=== PATIENT | male | born 1980 | race Caucasian/White ===

== ENCOUNTER 2019-11-19 08:12 | Emergency (ER) | payer OTHER ==
[~2019-11-19] VITALS: Ht 175.3 cm; Wt 86.2 kg
[~2019-11-19 08:12] MED LIST: ALBU90OI INH; Bactrim Ds Tab1 EACH PO; CEPH500 PO; CETI5; CETI5 PO; CYCL10 PO; EPIN.3I; EPIN.3I INJ; EPIN.3I UD; Norco 5-325 Ta1 EACH PO; OXYACE5T PO; SULTRIDS PO; [UNRECOGNIZED DRUG - OTHER]; [UNRECOGNIZED DRUG - OTHER] INH
[2019-11-19] MEDS ORDERED: [UNRECOGNIZED DRUG - OTHER] PO (10:14)
[2019-11-19] MEDS ORDERED: METPRE4DP PO (10:14)
[2019-11-19] MEDS ORDERED: Zithromax250 MG PO (10:14)
[2019-11-19 10:33] LABS: Influenza A Negative (NEGATIVE); Influenza B Negative (NEGATIVE)
== END 2019-11-19 10:44 | disposition home or self-care (01) ==
LOC: ER 08:12
PROVIDERS: Physician Assistant
DX: J44.1 Chronic obstructive pulmonary disease with (acute) exacerbation (principal); Z87.891 Personal history of nicotine dependence
CPT/HCPCS: 71046; 87804; 99283-25

== ENCOUNTER 2020-06-04 19:55 | Emergency (ER) | payer OTHER ==
[~2020-06-04] VITALS: Ht 172.7 cm; Wt 83.9 kg
[~2020-06-04 19:55] MED LIST changes: +METPRE4DP PO; +Zithromax250 MG PO; +[UNRECOGNIZED DRUG - OTHER] PO
[2020-06-04] MEDS ORDERED: Prednisone20 MG PO (21:21)
[2020-06-04] MEDS ORDERED: Amoxicillin875 MG PO (21:21)
== END 2020-06-04 21:28 | disposition home or self-care (01) ==
LOC: ER 19:55
DX: R06.2 Wheezing (principal); L53.9 Erythematous condition, unspecified; T36.1X5A Adverse effect of cephalosporins and other beta-lactam antibiotics, initial encounter; Z87.891 Personal history of nicotine dependence
CPT/HCPCS: 36415; 94640; 96374; 96375; 99282-25; J1200; J2930

== ENCOUNTER 2020-12-13 08:23 | Day surgery (SDC) | payer OTHER ==
[~2020-12-13] VITALS: Ht 175.3 cm; Wt 85.2 kg
[~2020-12-13 08:23] MED LIST changes: +Amoxicillin875 MG PO; +Prednisone20 MG PO
--- NOTE | 2020-12-13 09:35 | NUR ---
12/13/20 0935 SAVANAH DUNN MULTIPLE IV ATTEMPTS PERFORMED BY MULTIPLE STAF MAMBERS, APPROX 10 ATTEMPT, PATIENT TOLERATED WELL, IV ATTEMPT WAS SUCCESSFUL TO LEFT AC 20 G AND RIGHT HAND 20 G
== END 2020-12-13 11:01 | disposition home or self-care (01) ==
LOC: ORSCSDS 08:23
PROVIDERS: Orthopaedic Surgery
PROC: 01N50ZZ Release Median Nerve, Open Approach (ICD-10-PCS; principal; 2020-12-13 10:00)
DX: G56.01 Carpal tunnel syndrome, right upper limb (principal); F41.9 Anxiety disorder, unspecified; F32.9 Major depressive disorder, single episode, unspecified; Z22.322 Carrier or suspected carrier of Methicillin resistant Staphylococcus aureus; Z87.891 Personal history of nicotine dependence
CPT/HCPCS: J0690; J2250; J2704; J3010

== ENCOUNTER → 2021-09-19 | Outpatient (CLI) | payer OTHER | LOC: LAB SHORT 11:22 | DX: S90.851A Superficial foreign body, right foot, initial encounter (principal); L03.119 Cellulitis of unspecified part of limb; L97.509 Non-pressure chronic ulcer of other part of unspecified foot with unspecified severity; Z88.1 Allergy status to other antibiotic agents | CPT/HCPCS: 87070; 87075; 87205 ==

== ENCOUNTER → 2021-09-22 | Outpatient (CLI) | payer OTHER | END | disposition home or self-care (01) | LOC: LAB SHORT 13:55 → LAB 13:55 | DX: S90.851A Superficial foreign body, right foot, initial encounter (principal); T14.8XXA Other injury of unspecified body region, initial encounter; L03.119 Cellulitis of unspecified part of limb; L97.509 Non-pressure chronic ulcer of other part of unspecified foot with unspecified severity; M79.671 Pain in right foot; S91.341A Puncture wound with foreign body, right foot, initial encounter; M86.8X7 Other osteomyelitis, ankle and foot | CPT/HCPCS: 87070; 87075; 87205; 88305; 88312 ==